=== PATIENT | female | born 1990 | race Caucasian/White ===

== ENCOUNTER → 2017-04-11 | Outpatient (CLI) | payer OTHER ==
[~2017-04-11] MED LIST: ANAPROX DS550 MG PO; ATIVAN1 MG PO; CELEXA10 MG PO; CIPROFLOXACIN500 MG PO; MIRENA52 MG IU; Motrin,Rufen800 MG PO; ZOFRAN ODT4 MG SL; ZOFRAN4 MG PO
== END | disposition home or self-care (01) ==
LOC: US 17:09
DX: N92.1 Excessive and frequent menstruation with irregular cycle (principal)

== ENCOUNTER 2019-11-03 03:07 | Emergency (ER) | payer BC ==
[~2019-11-03] VITALS: Ht 152.4 cm; Wt 79.4 kg
[2019-11-03] MEDS ORDERED: TAMIFLU 75MG CA75 MG PO (05:47)
== END 2019-11-03 06:11 | disposition home or self-care (01) ==
LOC: ED 03:07
DX: J10.1 Influenza due to other identified influenza virus with other respiratory manifestations (principal); R11.10 Vomiting, unspecified; Z88.0 Allergy status to penicillin; Z79.899 Other long term (current) drug therapy

== ENCOUNTER → 2019-12-19 | Outpatient (CLI) | payer BC ==
[~2019-12-19] MED LIST changes: +TAMIFLU 75MG CA75 MG PO
== END | disposition home or self-care (01) ==
LOC: LAB 13:48
DX: N91.0 Primary amenorrhea (principal)

== ENCOUNTER → 2019-12-30 | Outpatient (CLI) | payer BC | END | disposition home or self-care (01) | LOC: US 12-26 12:30 | DX: N91.2 Amenorrhea, unspecified (principal) ==

== ENCOUNTER 2022-09-02 22:08 | Emergency (ER) | payer BC ==
[~2022-09-02] VITALS: Ht 157.4 cm; Wt 72.6 kg
== END 2022-09-02 23:59 | disposition home or self-care (01) ==
LOC: ED 22:08
DX: S52.124A Nondisplaced fracture of head of right radius, initial encounter for closed fracture (principal); Z88.0 Allergy status to penicillin; Z79.899 Other long term (current) drug therapy; W18.39XA Other fall on same level, initial encounter; Y93.89 Activity, other specified; Y92.89 Other specified places as the place of occurrence of the external cause; Y99.8 Other external cause status

== ENCOUNTER → 2022-09-13 | Outpatient (CLI) | payer BC | END | disposition home or self-care (01) | LOC: ORTHO 03:24 | PROVIDERS: ATTEND Orthopaedic Surgery | DX: S52.124D Nondisplaced fracture of head of right radius, subsequent encounter for closed fracture with routine healing (principal); X58.XXXD Exposure to other specified factors, subsequent encounter ==

== ENCOUNTER → 2022-09-27 | Outpatient (CLI) | payer BC | END | disposition home or self-care (01) | LOC: ORTHO 04:05 | PROVIDERS: ATTEND Orthopaedic Surgery | DX: S52.124D Nondisplaced fracture of head of right radius, subsequent encounter for closed fracture with routine healing (principal); X58.XXXD Exposure to other specified factors, subsequent encounter ==

== ENCOUNTER 2023-03-24 06:15 | Emergency (ER) | payer BC ==
[~2023-03-24] VITALS: Ht 167.6 cm; Wt 72.6 kg
== END 2023-03-24 06:46 | disposition home or self-care (01) ==
LOC: ED 06:15
DX: N89.8 Other specified noninflammatory disorders of vagina (principal); Z88.0 Allergy status to penicillin